=== PATIENT | female | born 1960 | race Caucasian/White ===

== ENCOUNTER 2021-09-10 06:26 | Day surgery (SDC) | payer OTHER ==
[2021-09-10] VITALS (32 sets, daily range): BP systolic 85–128; BP diastolic 37–73
[~2021-09-10] VITALS: Ht 157.5 cm; Wt 83.9 kg
[~2021-09-10 06:26] MED LIST: LEVO88TA2 PO; acetaminophen 325mg tablet PO ONE; cefazolin/dext.iso 2gm/50ml IV ONE; celeCOXIB 100mg capsule PO ONE; famotidine 20mg tablet PO ONE; gabapentin 300mg capsule PO ONE; metoclopramide 5 mg/ml inj IV ONE; oxyCODONE SR 10mg (sust. release) tab -2 tabs (20mg) PO ONE; ringers solution, lacted 1,000 ML IV SCH; tranexamic acid inj. 1,000 MG in 0.7% saline 100 ML PMX IV ONE; vancomycin 1,500 MG in NS 300ml IV soln IV ONE
[2021-09-10] MEDS ORDERED: potassium cl 20mEq in 1/2 NS 1,000 ML IV SCH (06:45)
[2021-09-10] MEDS ORDERED: diphenhydrAMINE 25mg capsule PO PRN ×2 (06:45)
[2021-09-10] MEDS ORDERED: acetaminophen 325mg tablet PO PRN (06:45)
[2021-09-10] MEDS ORDERED: HYDROmorphone 1 mg/ml syringe IV PRN (06:45)
[2021-09-10] MEDS ORDERED: ondansetron/PF 4mg/2ml inj IV PRN ×2 (06:45→08:55)
[2021-09-10] MEDS ORDERED: HYDROmorphone inj. 0.5 MG/0.5 ML DISP.SYRIN IV PRN (06:45)
[2021-09-10] MEDS ORDERED: magnesium hydroxide 30ml (MOM) UD suspension PO PRN (06:45)
[2021-09-10] MEDS ORDERED: bisacodyl 10mg suppository rectal RC PRN (06:45)
[2021-09-10] MEDS ORDERED: oxyCODONE/APAP 10/325mg tablet PO PRN ×2 (06:45)
[2021-09-10] MEDS ORDERED: epiNEPHrine 1 mg/ml inj ONE ×2 (07:23→09:03)
[2021-09-10] MEDS ORDERED: ROPIVAcaine 0.5% (5mg/ml) 30ml vial ONE ×3 (07:23→10:50)
[2021-09-10] MEDS ORDERED: cloNIDine hcl/PF 100mcg/ml inj ONE ×2 (07:23→09:03)
[2021-09-10] MEDS ORDERED: vancomycin 1,000mg inj ONE ×2 (07:23→09:05)
[2021-09-10] MEDS ORDERED: levoTHYROXINE 88mcg tablet PO SCH (08:00)
[2021-09-10] MEDS ORDERED: proCHLORperazine 10 MG/2 ml inj IV PRN (08:55)
[2021-09-10] MEDS ORDERED: ringers solution, lacted 1,000 ML IV SCH (08:55)
[2021-09-10] MEDS ORDERED: meperidine/PF 25mg/ml syringe IV PRN ×3 (08:55)
[2021-09-10 08:56] LABS: BASOPHILS % (AUTO) 0.8 % (0-1); EOSINOPHILS # (AUTO) 0.3 X10'3 (0-0.9); EOSINOPHILS % (AUTO) 5.8 % (0-6); LYMPHOCYTES # (AUTO) 1.5 X10'3 (1.1-4.8); MEAN CORPUSCULAR HEMOGLOBIN 30.4 PG (27.0-31.0); MEAN CORPUSCULAR HGB CONC 33.7 g/dL (33.0-36.5); MEAN CORPUSCULAR VOLUME 90.1 FL (78-98); MEAN PLATELET VOLUME 8.8 FL (7.4-10.4); MONOCYTES # (AUTO) 0.5 X10'3 (0-0.9); MONOCYTES % (AUTO) 9.2 % (2-12); NEUTROPHILS # (AUTO) 2.7 X10'3 (1.8-7.7); NEUTROPHILS % (AUTO) 54.2 % (42-75); PRE OP HEMATOCRIT 42.1 % (35.0-45.0); PRE OP HEMOGLOBIN 14.2 g/dL (12.0-16.0); PRE OP PLATELET COUNT 229 X10'3 (140-440); RED BLOOD COUNT 4.67 X10'6 (4.20-5.60)
[2021-09-10] MEDS ORDERED: ketorolac trometh. 30mg/ml inj. ONE (09:03)
[2021-09-10] MEDS ORDERED: TRANEXAMIC ACID 1 GM IN NACL,ISO-OS 100 ML IV ONE (09:10)
[2021-09-10] MEDS ORDERED: MIDAZolam 1 MG/ML 5ML VIAL ONE (09:35)
[2021-09-10] MEDS ORDERED: FENTANYL CITRATE/PF 50 MCG/1 ML VIAL ONE (09:35)
[2021-09-10] MEDS ORDERED: ROPIVAcaine 0.2% (10 MG/5 ML) BOLUS INJECTION ADDCANAL PRN (10:30)
[2021-09-10 10:35] LABS: ALANINE AMINOTRANSFERASE 30 U/L (12-78); ALBUMIN 3.9 G/DL (3.4-5.0); ALBUMIN/GLOBULIN RATIO 1.3 (1.1-1.5); ALKALINE PHOSPHATASE 77 IU/L (46-116); ANION GAP 10 (8-16); ASPARTATE AMINO TRANSFERASE 21 U/L (10-37); BILIRUBIN,TOTAL 0.5 MG/DL (0.1-1.0); BLOOD UREA NITROGEN 25 MG/DL (7-18); BUN/CREATININE RATIO 47.2 (6.6-38.0); CALCIUM 9.5 MG/DL (8.5-10.1); CHLORIDE 104 MMOL/L (99-107); CREATININE 0.53 MG/DL (0.40-0.90); GLUCOSE 110 MG/DL (70-104); POTASSIUM 4.2 MMOL/L (3.5-5.1); SODIUM 139 MMOL/L (135-145); TOTAL CARBON DIOXIDE 24.8 MMOL/L (24-32); TOTAL PROTEIN 6.8 G/DL (6.4-8.2); eGFR > 90 ML/MIN
[2021-09-10] MEDS ORDERED: dexamethasone sod phosphate 4mg/ml inj. ONE (10:54)
--- NOTE | 2021-09-10 11:25 | NUR ---
Received from OR via [facility] , accompanied by Anesthesiologist ELOISA and report given by Anesthesiolgist. PATIENT WITH 18G PIV IN LEFT HAND. VSS. DENIES PAIN FROM SPINAL ANESTHESIA. PATIENT WITH KNEE WRAP. POWDER PACK AND + DP VIA DOPPLER. PATIENT WITH 18G PIV IN LEFT HAND RUNNING LR AT 100. Addendum: 09/10/21 at 1141 by Scout Pillai RN, RN Amended: Links added.
[2021-09-10] MEDS: ROPIVAcaine 0.2%/PF PUMP/bolus 545 ML ADDCANAL SCH ×2 (11:57→12:03)
[2021-09-10] MEDS ORDERED: tranexamic acid 1gm/0.7% sal. 100 ML IV ONE (14:30)
[2021-09-10] MEDS ORDERED: aspirin 325mg tablet PO SCH (16:00)
[2021-09-10] MEDS ORDERED: multivitamins, therapeutics tablet PO SCH (16:00)
[2021-09-10] MEDS ORDERED: cefazolin/dext.iso 2gm/50ml 50 ML IV SCH (16:00)
--- NOTE | 2021-09-10 16:15 | NUR ---
ALL TRANSFER CRITERIA TO THE FLOOR HAS BEEN MET. VSS. DENIES PAIN. NO DRAINAGE PRESENT TO DRESSING. SPOUSE AT BEDSIDE AND LABELED BAG OF BELONGINGS SENT WITH PATIENT. RADHA PRESENT AT BEDSIDE TO ASSUME CARE. PATIENT ABLE TO SELF TRANSFER TO BED WITH USE OF TRAPEZE BAR. CARE TURNED OVER TO RN. Addendum: 09/10/21 at 1627 by Scout Pillai RN RN Amended: Links added.
--- NOTE | 2021-09-10 16:30 | NUR ---
Received from [facility] via [facility] , accompanied by Nurse Scout and report given by Scout. PATIENT WITH 18G PIV IN LEFT HAND. VSS. DENIES PAIN at this moment. PATIENT WITH KNEE WRAP. POWDER PACK AND + DP VIA DOPPLER. PATIENT WITH 18G PIV IN LEFT HAND RUNNING LR AT 100.
--- NOTE | 2021-09-10 17:41 | NUR ---
call placed to DR Gallagher concerning discharging order DR Gallagher stated "IF PATIENT IS ABLE TO WALK AROUNDAND GO TO THE BATHROOM WITH NO COMPLICATIONS SHE CAN GO HOME".
--- NOTE | 2021-09-10 18:27 | NUR ---
Problems reprioritized. Patient report given, questions answered & plan of care reviewed with MOHINI GUAN
[2021-09-10] MEDS ORDERED: VANCOMYCIN 1,500MG inj. 1,500 MG in dextrose 5% water 500ml 300 ML IV SCH (19:00)
[2021-09-10] MEDS ORDERED: ascorbic acid 500mg tablet PO SCH (20:00)
[2021-09-10] MEDS ORDERED: sennosides 8.6mg tablet PO SCH (21:00)
[2021-09-11] MEDS ORDERED: celeCOXIB 100mg capsule PO SCH (20:00)
== END 2021-09-10 20:15 | disposition home or self-care (01) ==
LOC: PAS 06:26 → SUR 3N 06:48 → UNDOADMOB 06:48 → SUR 3N 16:42 → PAS 20:15 → UNDODISOB 20:15
PROVIDERS: ATTEND Orthopaedic Surgery
DX: M17.12 Unilateral primary osteoarthritis, left knee (principal); G89.18 Other acute postprocedural pain; G50.0 Trigeminal neuralgia; E66.9 Obesity, unspecified; Z68.32 Body mass index [BMI] 32.0-32.9, adult; Z87.891 Personal history of nicotine dependence; Z98.890 Other specified postprocedural states; Z88.5 Allergy status to narcotic agent; Z88.8 Allergy status to other drugs, medicaments and biological substances; Z88.1 Allergy status to other antibiotic agents; Z79.899 Other long term (current) drug therapy; Z72.89 Other problems related to lifestyle
CPT/HCPCS: 27447; 36415; 64448; 64999; 73560; 76942; 80053; 84443; 85025; 86885; 86900; 86901; 87635; 93005; C1713; C1776; C9803; J0171; J0690; J0735; J1100; J1885; J2250; J2765; J2795; J3010; J3370; J3490; J7030; J7040; J7120; Z7506; Z7508; Z7512; A4215; A7000; G0378